=== PATIENT | female | born 1990 | race Caucasian/White ===

== ENCOUNTER 2020-03-11 11:27 | Outpatient (CLI) | payer OTHER, SELFPAY ==
--- NOTE | 2020-03-11 12:00 | MM_ITS ---
WS: [id number] DIAGNOSTIC BILATERAL DIGITAL MAMMOGRAM WITH CAD LEFT breast ultrasound, limited HISTORY: Palpable LEFT breast mass at 12:00. COMPARISON: None available. TECHNIQUE: Bilateral craniocaudad, mediolateral oblique, and mediolateral views are submitted. Spot c ompression LEFT CC. Computer aided detection utilized. Breast composition: The breasts are extremely dense, which lowers the sensitivity of mammography. Tri angular marker is placed at 12:00 anteriorly. There is no underlying mass or distortion identified. N o nipple retraction. There are very few benign calcifications scattered throughout the LEFT breast. LEFT breast ultrasound. Ultrasound is directed to the palpable abnormality near 1:00. There is very dense fibroglandular tiss ue. There is no mass or shadowing. No skin thickening. MM/[place] [id number] IMPRESSION: BI-RADS: 2-Benign FOLLOW UP: Age 38 LACK OF RADIOGRAPHIC EVIDENCE OF MALIGNANCY SHOULD NOT DELAY BIOPSY IF A CLINIC ALLY SUSPICIOUS MASS IS PRESENT.
--- NOTE | 2020-03-11 13:00 | US_ITS ---
WS: [id number] DIAGNOSTIC BILATERAL DIGITAL MAMMOGRAM WITH CAD LEFT breast ultrasound, limited HISTORY: Palpable LEFT breast mass at 12:00. COMPARISON: None available. TECHNIQUE: Bilateral craniocaudad, mediolateral oblique, and mediolateral views are submitted. Spot c ompression LEFT CC. Computer aided detection utilized. Breast composition: The breasts are extremely dense, which lowers the sensitivity of mammography. Tri angular marker is placed at 12:00 anteriorly. There is no underlying mass or distortion identified. N o nipple retraction. There are very few benign calcifications scattered throughout the LEFT breast. LEFT breast ultrasound. Ultrasound is directed to the palpable abnormality near 1:00. There is very dense fibroglandular tiss ue. There is no mass or shadowing. No skin thickening. US/US breast LT limited* [id number] IMPRESSION: BI-RADS: 2-Benign FOLLOW UP: Age 38 LACK OF RADIOGRAPHIC EVIDENCE OF MALIGNANCY SHOULD NOT DELAY BIOPSY IF A CLINIC ALLY SUSPICIOUS MASS IS PRESENT.
== END 2020-03-11 11:28 | disposition home or self-care (01) ==
LOC: RADSHAW 11:30
PROVIDERS: Visit Provider Internal Medicine
DX: N63.25 Unspecified lump in the left breast, overlapping quadrants (principal)
CPT/HCPCS: 76642; 77066

== ENCOUNTER → 2021-02-17 11:30 | Outpatient (BNVA) | payer OTHER, SELFPAY | PROVIDERS: Visit Provider Dermatology | DX: Z01.89 Encounter for other specified special examinations (principal) ==

== ENCOUNTER → 2021-03-23 15:20 | Outpatient (BNVA) | payer OTHER, SELFPAY | PROVIDERS: Visit Provider Family Medicine | DX: L29.9 Pruritus, unspecified (principal) | CPT/HCPCS: 80053; 84436; 84481; 85025 ==

== ENCOUNTER → 2021-04-22 14:10 | Outpatient (BNVA) | payer OTHER, SELFPAY | PROVIDERS: Visit Provider Family Medicine | DX: L29.9 Pruritus, unspecified (principal) | CPT/HCPCS: 71046 ==

== ENCOUNTER → 2022-02-09 17:02 | Outpatient (BNVA) | payer SELFPAY | PROVIDERS: Visit Provider Dermatology | DX: Z01.89 Encounter for other specified special examinations (principal) ==

== ENCOUNTER 2022-02-15 08:01 | Day surgery (SDC) | payer OTHER, SELFPAY ==
[2022-02-11 12:59] VITALS: BMI 24.7
--- NOTE | 2022-02-15 08:22 | W.PM.OPSFHP ---
Same Day Surgery H&P Indication for Procedure/HPI DATE OF PROCEDURE: February 15, 2022 CHIEF COMPLAINT/INDICATIONFOR SURGICAL PROCEDURE: Family history of colorectal cancer PREOP DIAGNOSIS: Painful diarrhea PLANNED PROCEDURE: Operation Date: 02/15/22 09:00 Proposed Procedures p Colonoscopy(Not Applicable) - Mitchell Morales MD Medications/Allergies* Home Medications Medication Instructions Recorded Confirmed Type aspirin 81 mg tablet 81 mg PO DAILY 02/11/22 02/11/22 History cholecalciferol (vitamin D3) 125 125 mcg PO DAILY 02/11/22 02/11/22 History mcg (5,000 unit) tablet (Vitamin D3) coenzyme Q10 100 mg capsule 100 mg PO DAILY 02/11/22 02/11/22 History docusate sodium 100 mg capsule 100 mg PO BID 02/11/22 02/11/22 History famotidine 20 mg tablet 20 mg PO BID 02/11/22 02/11/22 History polyethylene glycol 3350 17 gram 17 g PO DAILY 02/11/22 02/11/22 History oral powder packet (Miralax) vit no.133-ferrous 1 tab PO DAILY 02/11/22 02/11/22 History fumarate 28 mg-folic acid 800 mcg tablet () Allergies/Adverse Reactions Allergy/AdvReac Type Severity Reaction Status Date / Time No Known Allergies Allergy Verified 08/01/19 12:05 Pertinent Exam Findings alert, oriented x 3, clear to auscultation bilaterally, regular rate & rhythm, operative site marked and procedure specific exam findings Recommendations Surgery/Procedure today Coding Level of Care Code 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
--- NOTE | 2022-02-15 08:35 | ANES.PREANE2 ---
Pre-Anesthetic Assessment Height/Weight: Height 1.78 m Weight 78.018 kg Preop Diagnosis: Painful diarrhea Operation Date: 02/15/22 09:00 Proposed Procedures p Colonoscopy(Not Applicable) - Mitchell Morales MD Familial anesthetic complications: none Was Beta Yung taken within 24 hours: N/A Was Clonidine taken within 24 hours: N/A Last intake: > 8 hrs Social No alcohol and No tobacco Exam alert, oriented x 3, clear to auscultation bilaterally and regular rate & rhythm Airway Mallampati: Class I Dentition: full GI Gastroesophageal Reflux Disease Anesthetic Plan ASA status: 2 Anesthesia: MAC Risk of > 500 ml blood loss (7ml/kg in children): No Medications/Allergies Home Medications Medication Instructions Recorded Confirmed Last Taken Type aspirin 81 mg tablet 81 mg PO DAILY 02/11/22 02/15/22 02/10/22 History cholecalciferol (vitamin D3) 125 125 mcg PO DAILY 02/11/22 02/11/22 02/10/22 History mcg (5,000 unit) tablet (Vitamin D3) coenzyme Q10 100 mg capsule 100 mg PO DAILY 02/11/22 02/11/22 02/10/22 History docusate sodium 100 mg capsule 100 mg PO BID 02/11/22 02/11/22 02/10/22 History famotidine 20 mg tablet 20 mg PO BID 02/11/22 02/15/22 02/14/22 History vit no.133-ferrous 1 tab PO DAILY 02/11/22 02/11/22 02/10/22 History fumarate 28 mg-folic acid 800 mcg tablet () Allergies Allergy/AdvReac Type Severity Reaction Status Date / Time No Known Allergies Allergy Verified 08/01/19 12:05 [facility] Anesthesia Female Reproductive History Date of last menstrual period: 02/03/22 Data Anesthesia Cardiac Studies: No Data to Display
[2022-02-15 08:41] VITALS: BP 151/96; PULSE 96; RESP 18; TEMP 36.9; O2SAT 96
[2022-02-15] MEDS: sodium chloride 0.9% 1,000 ML 30 ML IV (08:45)
[2022-02-15 10:07] VITALS: BP 104/65; PULSE 70; RESP 16; TEMP 36.1; O2SAT 99
[2022-02-15 10:25] VITALS: BP 115/80; PULSE 68; RESP 18; O2SAT 100
--- NOTE | 2022-02-15 14:08 | ANE.PACU2 ---
Inpatient post-anesthesia follow up: Airway intact: Yes Vital signs: Temperature 97.0 F Pulse Rate 68 Respiratory Rate 18 Blood Pressure 115/80 Pulse Oximetry 100 Oxygen Delivery Me thod Room Air Oxygen Flow Rate Fraction of Inspir ed Oxygen Hydration adequate: Yes Nausea and vomiting: No Pain level: 1 Mental status: Baseline
[2022-02-16 09:03] LABS: OR HCG Qualitative Urine Negative (Negative)
== END 2022-02-15 10:49 | disposition home or self-care (01) ==
PROVIDERS: Visit Provider Internal Medicine
PROC: 0DJD8ZZ Inspection of Lower Intestinal Tract, Via Natural or Artificial Opening Endoscopic (ICD-10-PCS; CPT 45378; principal; 2022-02-15 09:00)
DX: R19.7 Diarrhea, unspecified (principal); Z80.0 Family history of malignant neoplasm of digestive organs; Z79.82 Long term (current) use of aspirin; K21.9 Gastro-esophageal reflux disease without esophagitis
CPT/HCPCS: 45378; 84703; J2704; J7030

== ENCOUNTER 2022-11-25 09:37 | Outpatient (CLI) | payer OTHER, SELFPAY ==
--- NOTE | 2022-11-25 10:30 | FL_ITS ---
WS: [id number] HYSTEROSALPINGOGRAM The cervical opening was cannulated by the obstetrics tech. Then under fluoroscopic guidance, water-solu ble contrast was injected in a retrograde fashion. CLINICAL INFORMATION: N97.9 - Female infertility, unspecified COMPARISON: None. FINDINGS: The uterus fills normally, with no evidence of contour abnormality, filling defect, or septum. The bi lateral fallopian tubes are normal and patent with normal rapid spillage of contrast into the periton eum. No other suspicious findings. FLUOROSCOPY TIME: 0min 43.0sec # of spot films: 5. FL/FL hysterosalpingography [id number] IMPRESSION: Normal hysterosalpingogram with rapid spillage bilaterally.
== END 2022-11-25 09:38 | disposition home or self-care (01) ==
PROVIDERS: Visit Provider Obstetrics & Gynecology
DX: N97.9 Female infertility, unspecified (principal)
CPT/HCPCS: 74740

== ENCOUNTER → 2023-12-19 09:53 | Outpatient (BNVA) | payer OTHER, SELFPAY | PROVIDERS: Referring Provider Family Medicine; Visit Provider Nurse Practitioner | DX: Z32.01 Encounter for pregnancy test, result positive (principal) | CPT/HCPCS: 84702 ==

== ENCOUNTER → 2023-12-26 10:50 | Outpatient (BNVA) | payer OTHER, SELFPAY | PROVIDERS: Referring Provider Nurse Practitioner; Visit Provider Nurse Practitioner | DX: N97.9 Female infertility, unspecified (principal) | CPT/HCPCS: 84703 ==

== ENCOUNTER → 2024-02-08 08:42 | Outpatient (BNVA) | payer OTHER, SELFPAY | PROVIDERS: Referring Provider Family Medicine; Visit Provider Family Medicine | DX: Z32.02 Encounter for pregnancy test, result negative (principal) | CPT/HCPCS: 84702 ==

== ENCOUNTER → 2024-02-10 10:20 | Outpatient (BNVA) | payer OTHER, SELFPAY | PROVIDERS: Referring Provider Family Medicine; Visit Provider Family Medicine | DX: Z32.00 Encounter for pregnancy test, result unknown (principal) | CPT/HCPCS: 84702 ==

== ENCOUNTER → 2024-02-13 10:45 | Outpatient (BNVA) | payer OTHER, SELFPAY | PROVIDERS: Referring Provider Nurse Practitioner; Visit Provider Nurse Practitioner | DX: Z34.90 Encounter for supervision of normal pregnancy, unspecified, unspecified trimester (principal) | CPT/HCPCS: 84702 ==

== ENCOUNTER → 2024-02-16 08:20 | Outpatient (BNVA) | payer OTHER, SELFPAY | PROVIDERS: Referring Provider Nurse Practitioner; Visit Provider Nurse Practitioner | DX: N97.9 Female infertility, unspecified (principal) | CPT/HCPCS: 84702 ==

== ENCOUNTER → 2024-03-26 10:52 | Outpatient (BNVA) | payer OTHER, SELFPAY | PROVIDERS: PCP Nurse Practitioner; Referring Provider Nurse Practitioner; Visit Provider Nurse Practitioner | DX: N97.9 Female infertility, unspecified (principal) | CPT/HCPCS: 84702 ==

== ENCOUNTER → 2024-04-16 08:13 | Outpatient (BNVA) | payer OTHER, SELFPAY | PROVIDERS: PCP Nurse Practitioner; Referring Provider Nurse Practitioner; Visit Provider Nurse Practitioner | DX: N97.9 Female infertility, unspecified (principal) | CPT/HCPCS: 84702 ==

== ENCOUNTER → 2024-04-18 08:30 | Outpatient (BNVA) | payer OTHER, SELFPAY | PROVIDERS: PCP Nurse Practitioner; Referring Provider Nurse Practitioner; Visit Provider Nurse Practitioner | DX: N97.9 Female infertility, unspecified (principal); N63.20 Unspecified lump in the left breast, unspecified quadrant | CPT/HCPCS: 84144; 84702 ==

== ENCOUNTER → 2024-06-20 09:30 | Outpatient (BNVA) | payer OTHER, SELFPAY | PROVIDERS: PCP Nurse Practitioner; Referring Provider Nurse Practitioner; Visit Provider Nurse Practitioner | DX: N97.9 Female infertility, unspecified (principal) | CPT/HCPCS: 84702 ==

== ENCOUNTER → 2024-06-22 09:46 | Outpatient (BNVA) | payer OTHER, SELFPAY | PROVIDERS: PCP Nurse Practitioner; Visit Provider Nurse Practitioner | DX: N97.9 Female infertility, unspecified (principal) | CPT/HCPCS: 84702 ==

== ENCOUNTER → 2024-08-08 14:35 | Outpatient (BNVA) | payer OTHER, SELFPAY | PROVIDERS: PCP Nurse Practitioner; Visit Provider Nurse Practitioner Women's Health | DX: N91.2 Amenorrhea, unspecified (principal); Z34.90 Encounter for supervision of normal pregnancy, unspecified, unspecified trimester; Z3A.10 10 weeks gestation of pregnancy | CPT/HCPCS: 76801; 80307; 81025; 85025; 86592; 86762; 86803; 86850; 86900; 87086; 87340; 87806 ==

== ENCOUNTER → 2024-09-05 13:23 | Outpatient (BNVA) | payer OTHER, SELFPAY | PROVIDERS: PCP Nurse Practitioner; Visit Provider Nurse Practitioner Women's Health | DX: Z34.92 Encounter for supervision of normal pregnancy, unspecified, second trimester (principal); Z3A.15 15 weeks gestation of pregnancy | CPT/HCPCS: 76815; 84315; 87491; 87591; 87661 ==

== ENCOUNTER → 2024-09-18 12:02 | Outpatient (BNVA) | payer OTHER, SELFPAY | PROVIDERS: PCP Nurse Practitioner; Referring Provider Nurse Practitioner Women's Health; Visit Provider Nurse Practitioner Women's Health | DX: O09.899 Supervision of other high risk pregnancies, unspecified trimester (principal); Z3A.00 Weeks of gestation of pregnancy not specified | CPT/HCPCS: 80053; 82105; 82607; 82728; 82746; 83540; 83550; 87086 ==

== ENCOUNTER 2024-09-26 14:14 | Outpatient (CLI) | payer OTHER, SELFPAY ==
--- NOTE | 2024-09-26 14:30 | US_ITS ---
WS: [id number] Left breast ultrasound, 09/26/2024 Clinical Data: R22.32 - Localized swelling, mass and lump, left upper limb Comparison: Left breast ultrasound, 03/11/2020 Findings: The swelling in the axilla was imaged. Enlarged lymph nodes were seen. One lymph node measured 0.9 x 1.1 x 1.2 cm and the other was 1.2 x 2.1 x 2.2 cm. No other lesions were seen. US/US breast LT limited* [id number] Impression: 1. Lymph nodes in left axilla. 2. Recommend clinical follow-up. BIRADS: 2 - Benign FOLLOW UP: See Report
== END 2024-09-26 14:15 | disposition home or self-care (01) ==
PROVIDERS: PCP Nurse Practitioner; Visit Provider Nurse Practitioner Women's Health
DX: R59.0 Localized enlarged lymph nodes (principal)
CPT/HCPCS: 76642

== ENCOUNTER 2024-09-28 13:13 | Outpatient (CLI) | payer OTHER, SELFPAY ==
--- NOTE | 2024-09-28 13:30 | US_ITS ---
WS: [id number] ULTRASOUND-GUIDED LEFT AXILLARY LYMPH NODE BIOPSY CLINICAL INFORMATION: R22.32 - Localized swelling, mass and lump, left upper limb FINDINGS: The procedure including risks, benefits, and complications were discussed with the patient who agreed to proceed. Using sterile technique patient was prepped and draped in the usual sterile fashion. After 1% lidocaine utilizing real-time ultrasound guidance 4 14-gauge cores were obtained of the enlarged LEFT axillary lymph node. No immediate complications. US/[place] [id number] IMPRESSION: 1. Uncomplicated ultrasound-guided LEFT breast biopsy. 2. The pathology demonstrates benign appearing lymph node tissue. No evidence of malignancy. DENSITY: The breasts are heterogeneously dense, which may obscure small masses. BI-RADS: 2 - Benign FOLLOW UP: Age 38 Recommend annual screening mammography age 38
== END 2024-09-28 13:14 | disposition home or self-care (01) ==
PROVIDERS: PCP Nurse Practitioner; Visit Provider Nurse Practitioner Women's Health
DX: R22.32 Localized swelling, mass and lump, left upper limb (principal)
CPT/HCPCS: 19083; 88305

== ENCOUNTER → 2024-10-10 14:03 | Outpatient (BNVA) | payer OTHER, SELFPAY | PROVIDERS: PCP Nurse Practitioner; Visit Provider Nurse Practitioner Women's Health | DX: Z36.9 Encounter for antenatal screening, unspecified (principal) | CPT/HCPCS: 76805; 84315 ==

== ENCOUNTER → 2024-11-09 11:03 | Outpatient (BNVA) | payer OTHER, SELFPAY | PROVIDERS: PCP Nurse Practitioner; Visit Provider Nurse Practitioner | DX: R31.9 Hematuria, unspecified (principal) | CPT/HCPCS: 81000; 87077; 87086; 87184 ==

== ENCOUNTER → 2024-11-14 13:26 | Outpatient (BNVA) | payer OTHER, SELFPAY | PROVIDERS: PCP Nurse Practitioner; Visit Provider Nurse Practitioner Women's Health | DX: O09.899 Supervision of other high risk pregnancies, unspecified trimester (principal); O23.41 Unspecified infection of urinary tract in pregnancy, first trimester; B95.1 Streptococcus, group B, as the cause of diseases classified elsewhere | CPT/HCPCS: 84315 ==

== ENCOUNTER 2024-12-08 22:17 | Outpatient (CLI) | payer OTHER, SELFPAY ==
[2024-12-08 22:24] VITALS: BMI 29.7
[2024-12-08 22:49] VITALS: BP 117/67; PULSE 75
[2024-12-08 22:59] VITALS: BP 103/60; PULSE 75
[2024-12-08 23:09] VITALS: BP 99/58; PULSE 73
[2024-12-08 23:19] VITALS: BP 97/58; PULSE 73
[2024-12-08 23:29] VITALS: BP 97/58; PULSE 73; RESP 16; TEMP 36.6; O2SAT 100
== END 2024-12-08 23:33 | disposition home or self-care (01) ==
LOC: OPOB 22:18 → OBGYN 22:20
PROVIDERS: PCP Family Medicine; Visit Provider Obstetrics & Gynecology
DX: O36.8190 Decreased fetal movements, unspecified trimester, not applicable or unspecified (principal); Z3A.00 Weeks of gestation of pregnancy not specified
CPT/HCPCS: 59025; 99211

== ENCOUNTER → 2024-12-12 14:38 | Outpatient (BNVA) | payer OTHER, SELFPAY | PROVIDERS: PCP Family Medicine; Visit Provider Nurse Practitioner Women's Health | DX: O09.899 Supervision of other high risk pregnancies, unspecified trimester (principal) | CPT/HCPCS: 82950; 84315; 85025 ==

== ENCOUNTER → 2024-12-27 15:32 | Outpatient (BNVA) | payer OTHER, SELFPAY | PROVIDERS: PCP Family Medicine; Visit Provider Obstetrics & Gynecology | DX: O09.899 Supervision of other high risk pregnancies, unspecified trimester (principal); Z87.59 Personal history of other complications of pregnancy, childbirth and the puerperium | CPT/HCPCS: 80053; 82570; 83615; 84156; 84315; 85025 ==

== ENCOUNTER → 2025-01-10 12:42 | Outpatient (BNVA) | payer OTHER, SELFPAY | PROVIDERS: PCP Family Medicine; Visit Provider Obstetrics & Gynecology | DX: Z36.4 Encounter for antenatal screening for fetal growth retardation (principal); Z3A.33 33 weeks gestation of pregnancy | CPT/HCPCS: 76816; 84315 ==

== ENCOUNTER → 2025-01-24 15:00 | Outpatient (BNVA) | payer OTHER, SELFPAY | PROVIDERS: PCP Family Medicine; Visit Provider Obstetrics & Gynecology | DX: O09.523 Supervision of elderly multigravida, third trimester (principal); O09.813 Supervision of pregnancy resulting from assisted reproductive technology, third trimester; O09.293 Supervision of pregnancy with other poor reproductive or obstetric history, third trimester | CPT/HCPCS: 80053; 82570; 84156; 84315; 84550; 85025 ==

== ENCOUNTER → 2025-01-31 13:57 | Outpatient (BNVA) | payer OTHER, SELFPAY | PROVIDERS: PCP Family Medicine; Visit Provider Obstetrics & Gynecology | DX: O09.523 Supervision of elderly multigravida, third trimester (principal); O09.813 Supervision of pregnancy resulting from assisted reproductive technology, third trimester; Z87.59 Personal history of other complications of pregnancy, childbirth and the puerperium; Z3A.35 35 weeks gestation of pregnancy | CPT/HCPCS: 84315 ==

== ENCOUNTER → 2025-02-07 14:38 | Outpatient (BNVA) | payer OTHER, SELFPAY | PROVIDERS: PCP Family Medicine; Visit Provider Obstetrics & Gynecology | DX: O09.523 Supervision of elderly multigravida, third trimester (principal); O09.293 Supervision of pregnancy with other poor reproductive or obstetric history, third trimester | CPT/HCPCS: 84315 ==

== ENCOUNTER 2025-02-15 13:59 | Outpatient (CLI) | payer OTHER, SELFPAY ==
--- NOTE | 2025-02-15 14:15 | US_ITS ---
WS: [id number] BIOPHYSICAL PROFILE AMNIOTIC FLUID HISTORY: Z87.59 - Personal history of other complications of pregn... COMPARISON: 01/10/2025 position: Vertex. Cardiac activity: 163 bpm. Cervix: closed. Placenta: Fundal Placenta grade: 3 Parameters are as follows: Breathin Movement: 2 Tone: 2 Fluid volume: 2 Amniotic Fluid Index: 9.4 cm. US/US OB BPP wo NST [id number] IMPRESSION: 1. Biophysical profile score: 8/8. 2. Amniotic fluid index: 9.4 cm. 3. Grade 3 placenta. Placenta has age since the prior ultrasound of 01/10/2025.
== END 2025-02-15 14:00 | disposition home or self-care (01) ==
LOC: RAD 14:00
PROVIDERS: PCP Family Medicine; Visit Provider Obstetrics & Gynecology
DX: Z87.59 Personal history of other complications of pregnancy, childbirth and the puerperium (principal); O09.893 Supervision of other high risk pregnancies, third trimester; O43.893 Other placental disorders, third trimester
CPT/HCPCS: 76819; 84315

== ENCOUNTER → 2025-02-21 15:13 | Outpatient (BNVA) | payer OTHER, SELFPAY | PROVIDERS: PCP Family Medicine; Visit Provider Obstetrics & Gynecology | DX: Z3A.38 38 weeks gestation of pregnancy (principal) | CPT/HCPCS: 84315 ==

== ENCOUNTER 2025-02-23 07:17 | Inpatient (IN) | payer OTHER, SELFPAY ==
[2025-02-22] VITALS (26 sets, daily range): BP systolic 104–139; BP diastolic 58–89; PULSE 69–86; RESP 16; TEMP 36.8–36.9; BMI 29.9
[2025-02-22 13:35] LABS: Hematocrit 34.4 % (36-47); Hemoglobin 11.60 g/dL (11.27-16.99); Mean Corpuscular HGB Conc 33.7 g/dL (30-55); Mean Corpuscular Hemoglobin 26.9 pg (27-33); Mean Corpuscular Volume 79.6 fl (85-98); Nucleated Red Blood Cells % 0 %; Platelet Count 204 10^3/cmm (157-399); Red Blood Count 4.32 10^6/uL (3.85-5.65); White Blood Count 8.86 10^3/uL (3.29-11.43)
[2025-02-22] MEDS: penicillin g potassium 5,000,000 UNIT in sodium chloride 0.9% (plus) 100 ML 100 UNIT IV (13:50)
--- NOTE | 2025-02-22 14:23 | P.HP_ITS ---
Providers/Chief Complaint 2 Admitting Physician: Michael Patel MD Primary Care Provider: Lyndsay Coronado MD Chief Complaint: iol History of Present Illness Samantha Gomez is a 34 year old established patient @ 39.0 weeks by ART of donated 6-day old embryo on 06/14/2024 placing DARA at 03/01/2025, confirmed with 10-week sonogram. Her is complicated by advanced maternal age, history of gestational hypertension, embryo transfer, GBS bacteruria. The patient presented to labor and delivery for a scheduled elective induction of labor due to concern for her prior history of gestational hypertension. Upon presentation her heart tones are in the mid 150s with moderate variability good accelerations with a category 1 tracing. She is not having any contractions. The patient denies any chest pains, shortness of breath, nausea, vomiting, diarrhea, constipation, dysuria, leakage of fluid, vaginal bleeding, fever. She did have a viral URI a couple of weeks ago and still has a mild residual cough. Medications/Allergies Home Medications ?Medication ?Instructions ?Recorded ?Confirmed ?Last Taken ?Type famotidine 20 mg tablet 20 mg PO BID 02/11/2202/21/25 22:00 History vits no.133-ferrous 1 tab PO DAILY 02/11/22 0 02/21/25 02/19/25 20:00 History fumarate 28 mg-folic acid 800 mcg tablet () aspirin 81 mg chewable tablet 81 mg PO DAILY 10/10/24 02/21/25 Unknown History breast pump #1 ea 12/12/24 02/21/25 Unkn own Rx Allergies Allergy/AdvReac Type Severity Reaction Status Date / Time shellfish derived Allergy ALGY-Rash Verified 02/21/25 08:08 PFSH Acute 2 PFSH: Medical History No pertinent past medical history neghx: htn,dm,thyroid,dvt/pe PCP: Mariam Arana Surgical History History of cholecystectomy Family History Grandmother Colon cancer paternal - dx'd at age 60 Father Heart disease Grandfather Heart disease maternal Denies family history of Ovarian cancer Prostate cancer Diabetes Hyperlipidemia Breast cancer Hypertension Uterine cancer Thyroid disease Stroke Social History (Updated 02/22/25 @ 14:28 by Michael Patel MD) Smoking and tobacco/nicotine status: never used tobacco/nicotine Substance/Drug Use: never Female Reproductive History: : 4 Vitals/I&O/Wt Last Vital Signs Pulse 82 02/22/25 14:17 BP 119/73 02/22/25 14:17 O2 Del Method Room Air 02/22/25 13:00 Weight last 48 hrs Weight 209 lb Weight 209 lb Physical Exam 2 Narrative: General: Alert and oriented x3 Eyes: Pupils equal round and reactive to light and accommodation Mouth: Mucous membranes moist, pharynx non-erythematous Cardiac: Regular rate and rhythm without murmurs Lungs: Clear to auscultation bilaterally without wheezes, crackles or rhonchi Abdomen: Soft, non-tender, fundus consistent with gestational age Extremities: Trace edema in the bilateral lower extremities Data 02/22/25 13:05 A&P Assessment and plan 1. Intrauterine : The patient is doing well overall at this time. We discussed different options for induction of labor and the patient was found to be closed, thick and high upon presentation. For this reason, Cytotec was placed. We will recheck in 4 hours to see how she is doing and plan for the next step depending on her course. The patient may receive a laboring epidural if she would like when she gets to 3 cm dilation. Potentially sooner if needed. Will start penicillin for GBS prophylaxis. Overall the patient is doing well. We will proceed with routine intrapartum management. 2. resulting from in vitro fertilization in third trimester: 3. Group B Streptococcus urinary tract infection affecting in third trimester: 4. History of gestational hypertension: 5. Multigravida of advanced maternal age in third trimester: PDMP PDMP Reviewed: Not Reviewed Attestations 2 Medical Necessity Statement*: The patient will be here for greater than 2 midnights due to routine intrapartum and management of labor and delivery. Coding Level of Care Code Acute Code for Chg Fwd Diagnoses Intrauterine Z34.90 resulting from in vitro fertilization in third trimester O09.813 Group B Streptococcus urinary tract infection affecting in third trimester O23.43; B95.1 Trimester: third trimester History of gestational hypertension Z87.59 Multigravida of advanced maternal age in third trimester O09.523 Trimester: third trimester
[2025-02-22] MEDS: PENICILLIN G POTASSIUM 2,500,000 UNIT/50 ML BAG 50 UNIT IV ×2 (18:11→21:52)
--- NOTE | 2025-02-22 23:05 | PM.ACPR ---
Procedure/Consent Procedure Narrative: Name of procedure: Mcclure bulb placement The patient had 1 dose of Cytotec and has been nikita, however not making significant change. She has been nikita every 2 to 3 minutes. heart tones are in the mid 140s with moderate variability and good accelerations with a category 1 tracing. At this point she does not have a mario of 6 and she is nikita too frequently in order to place another Cytotec. Her last dose was 9 hours ago. Because she is not making change we decided to place a Mcclure bulb. The first attempt was not able to pass a Mcclure bulb into the cervix successfully, so we waited a couple of hours. On the second attempt, the Mcclure bulb was placed using a speculum for guidance. 70 mL of fluid was placed in each balloon on either side of the cervix. The patient tolerated the procedure well. There was some bloody show with the procedure. No active bleeding otherwise. We will proceed with current plan of care and plan to add Pitocin if she does not make change sufficiently with the Mcclure bulb and her current contractions. Currently the patient is in agreement with the current plan of care
[2025-02-23] VITALS (79 sets, daily range): BP systolic 79–145; BP diastolic 45–106; PULSE 55–107; RESP 16–18; TEMP 36.7–36.8; O2SAT 89–100
[2025-02-23] MEDS: PENICILLIN G POTASSIUM 2,500,000 UNIT/50 ML BAG 50 UNIT IV ×2 (02:11→05:45)
[2025-02-23] MEDS: ROPivacaine premix 200 MG/100 ML PREMIX 13 MG EPIDURAL (03:45)
--- NOTE | 2025-02-23 03:49 | ANES.PREANE2 ---
Pre-Anesthetic Assessment Height/Weight: Height 1.78 m Weight 94.801 kg Temp Pulse Resp BP Pulse Ox O2 Del Method 98.5 F 77 16 127/85 99 Room Air 02/22/25 20:44 02/23/25 03:44 02/22/25 18:00 02/23/25 03:36 02/23/25 03:44 02/22/25 13:00 Preop Diagnosis: intrauterine labor epidural Familial anesthetic complications: none Was Beta Yung taken within 24 hours: N/A Was Clonidine taken within 24 hours: N/A Social No alcohol and No tobacco Exam alert, oriented x 3 and clear to auscultation bilaterally Airway Mallampati: Class II Dentition: full History/ROS No significant history except as noted Pulmonary None reported CV/HEM None reported None reported Hepatic None reported GI None reported Metabolic None reported Musc/skel None reported Neuropsych None reported Anesthetic Plan ASA status: 2 Anesthesia: Regional (specify below) Risk of > 500 ml blood loss (7ml/kg in children): Yes, adequate IV access and fluids planned Medications/Allergies Home Medications ?Medication ?Instructions ?Recorded ?Confirmed ?Last Taken ?Type famotidine 20 mg tablet 20 mg PO BID 02/11/22 02/21/25 02/21/25 22:00 History vits no.133-ferrous 1 tab PO DAILY 02/11/22 02/21/25 02/19/25 20:00 History fumarate 28 mg-folic acid 800 mcg tablet () aspirin 81 mg chewable tablet 81 mg PO DAILY 10/10/24 02/21/25 Unknown History breast pump #1 ea 12/12/24 02/21/25 Unknown Rx Allergies Allergy/AdvReac Type Severity Reaction Status Date / Time shellfish derived Allergy ALGY-Rash Verified 02/21/25 08:08 Current Medications Generic Name Dose Route Start Last Admin Trade Name Freq PRN Reason Stop Dose Admin Penicillin G Potassium 2,500,000 unit in 50 mls @ 50 mls/hr 02/22/25 17:30 02/23/25 02:11 IV 50 mls/hr Q4H FREDY Administration Protocol Dextrose/Lactated Ringer's 1,000 mls @ 125 mls/hr 02/22/25 13:30 02/22/25 13:50 Dextrose 5%-Lactated Ringers IV 125 mls/hr .Q8H FREDY Administration Ropivacaine 200 mg in 100 mls @ 10 mls/hr 02/23/25 02:15 02/23/25 03:45 Naropin Premix EPIDURAL 13 mls/hr .Q10H FREYD Administration Misoprostol 25 mcg 02/22/25 13:45 02/22/25 13:50 Misoprostol 100 Mcg Tablet VAGINAL 02/24/25 13:46 25 mcg ONCE FREDY Administration PFSH Anesthesia Medical History (Updated 02/22/25 @ 14:28 by Michael Patel MD) No pertinent past medical history neghx: htn,dm,thyroid,dvt/pe PCP: Mariam Arana Surgical History History of cholecystectomy Family History Grandmother Colon cancer paternal - dx'd at age 60 Father Heart disease Grandfather Heart disease maternal Denies family history of Ovarian cancer Prostate cancer Diabetes Hyperlipidemia Breast cancer Hypertension Uterine cancer Thyroid disease Stroke Social History (Updated 02/22/25 @ 14:28 by Michael Patel MD) Smoking and tobacco/nicotine status: never used tobacco/nicotine Substance/Drug Use: never Female Reproductive History : 4 Data Anesthesia 02/22/25 13:05 Short CBC 02/22/25 Range/Units 13:05 WBC 8.86 (3.29-11.43) 10^3/uL Hgb 11.60 (11.27-16.99) g/dL Hct 34.4 L (36-47) % MCV 79.6 L (85-98) fl Plt Count 204 (157-399) 10^3/cmm Neut % (Auto) 76.8 % Neut # (Auto) 6.81 (1.8-7.7) 10^3/uL Blood Bank 02/22/25 13:05 Blood Type A Positive Rho(D) Type Rh positive Antibody Screen Negative Anesthesia Procedures Epidural Time Out Performed: Yes Consents Signed: Procedure Consent Consent: requested by attending/covering physician, from patient, risks and benefits reviewed and patient agrees to proceed Lumbar Level: L4-L5 Epidural position: sitting Epidural procedure: sterile prep of area, 1% lidocaine to numb the area, 18 g needle, negative for paresthesia passed, neg for paresthesia, test dose given, 1.5% xylocaine 1:200k epi, 0.2% Ropivacaine bolus ml (5), placed PCEA, no systemic response, sterile dressing applied, L.U.D. no apparent complications and 0.2% Ropiavacaine @ mls/hr (13) Additional Comments: BENJAMIN 6cm, catheter easily threaded to 5cm in the space. VS monitored throughout and remained stable. Pt educated on OPERATOR CAVITY PUMP and reports adequate pain relief with epidural
[2025-02-23] MEDS: oxytocin 30 UNIT/500 ML BAG IV (05:15)
[2025-02-23] MEDS: ondansetron 2 mg/ML SDV 2 mL 4 MG IVP (06:37)
[2025-02-23] MEDS: PENICILLIN G POTASSIUM 2,500,000 UNIT/50 ML BAG 100 UNIT IV (09:49)
[2025-02-23] MEDS: ROPivacaine premix 200 MG/100 ML PREMIX 12 MG EPIDURAL (11:02)
--- NOTE | 2025-02-23 12:20 | P.PCNOB_ITS ---
Delivery Note: Date of delivery: February 23, 2025 Pre-Delivery Course: Samantha Gomez is a 34 year old G4 now P3013 established patient status post spontaneous vaginal delivery @ 39.1 weeks by ART of donated 6-day old embryo on 06/14/2024 placing DARA at 03/01/2025, confirmed with 10-week sonogram. Her was complicated by advanced maternal age, history of gestational hypertension, embryo transfer, GBS bacteruria. The patient presented to labor and delivery for a scheduled elective induction of labor due to concern for her prior history of gestational hypertension. Upon presentation, her cervix was closed, thick and high. She was started on IV penicillin for GBS prophylaxis and given 1 dose of Cytotec and she began to contract every 3 to 4 minutes. The contractions continued and she changed to 1 cm dilation but continued to be thick and high. With concern that another dose of Cytotec could cause hyperstimulation and that her Carter was less than 6, it was felt best to proceed with a Mcclure bulb placement. Initially the first attempt was unsuccessful related to the patient's very posterior cervix, but on the second attempt it was successful using a speculum as a guide. The patient's cervix dilated to 5 cm when the Mcclure bulb came out on its own. IV Pitocin was started for augmentation of labor. The patient received a laboring epidural. The patient did have an episode of low blood pressure that was associated with dizziness. A fluid bolus was given and her epidural was turned down. The patient recovered well with this intervention alone. The IV Pitocin was restarted and gradually increased. By 9:10 AM on 02/23/2025, she had not made significant change so AROM was performed to help augment labor. Clear fluid was noted. Delivery: The patient was complete by 11:40 AM on 02/23/2025. The patient began pushing at 11:55 AM and pushed well. The delivered at 12:00 PM in the OA position. There was no nuchal cord. The right shoulder was anterior shoulder and it delivered with ease. The rest of the infant delivered without complication. The 's mouth and nose were bulb suction by myself. The fluid did become lightly meconium stained at the time of delivery. The infant was placed on the mother's chest where the nurses were awaiting to care for her. The was vigorous at . The cord was clamped by myself after approximately 1 minute and cut by the 's father. Cord blood was obtained. The cord was then drained of blood and traction was placed on umbilical cord. The placenta delivered without complication at 12:07 PM on 02/23/2025. The placenta was noted to be intact with a central umbilical cord insertion site. The cervix was inspected and no lacerations were noted. The vaginal wall was inspected and there were 2 small abrasions noted on the left lower vaginal wall. These were not bleeding and did not need suturing. The patient's bleeding has been slow so far and her EBL is 150 mL. Currently both the mother and are doing very well. History History History 2 4 Term 3 0 Miscarriages/Ectopic 1 Living Children 3 Past Pregnancies Del. Date GA/Weeks Outcome Route Wt Inf Gender Labor Lgth Comp. Anesth esia Location 02/23/25 39 live - full term Vaginal 6 lb 15 oz Female 16 hr regional [facility] - [facility] Delivery Date: 02/23/25 Last Updated by: Michael Patel MD No tears A&P Assessment and plan 1. Spontaneous vaginal delivery: PDMP PDMP Reviewed: Not Reviewed Coding Level of Care Code Acute Code for Chg Fwd Diagnoses Spontaneous vaginal delivery O80
--- NOTE | 2025-02-23 17:33 | PC.NURSE ---
PATIENT HAS NOT VOIDED SINCE DELIVERY SO I HAD BEEN TELLING HER THAT WE NEEDED TO TRY AND GO PEE, SHE HAS HAD LOTS OF COMPANY AND HER LEFT LEG WAS STILL SO WHAT NUMB SHE CAN LIFT IT. SO AT AROUND 1545 OR SO. WE TRIED TO STAND UP AND MARCH IN PLACE AND HER LEFT LEG DID NOT WANT TO SUPPORT HER SO WE GOT A WHEELCHAIR AND PUT HER IN IT AND WHEELED HER TO BATHROOM AND THEN ASSISTED HER TO TOILET AND SHE PEED LARGE AMOUNT AND WAS INSTRUCTED ON [employer] AND FRESH PAD AND PANTIES PUT ON AND THEN WE AGAIN ASSISTED HER INTO WHEELCHAIR AND THEN WE MOVED HER AND ALL HER BELONGING TO OB 7 AND ASSISTED HER TO BED. AGAIN STRESSED TO HER NOT TO GET UP WITHOUT US. SHE VOICES UNDERSTANDING.
--- NOTE | 2025-02-23 19:08 | PC.NURSE ---
1745 PT UP TO BATHROOM, WALKING BETTER BUT LEFT LEG IS STILL UNSTEADY WHEN SHE SITS DOWN. AGAIN TOLD HER NOT TO GET UP WITHOUT OUR HELP, VOICED UNDERSTANDING.
[2025-02-24 00:17] LABS: Hematocrit 29.0 % (36-47); Hemoglobin 9.60 g/dL (11.27-16.99); Mean Corpuscular HGB Conc 33.1 g/dL (30-55); Mean Corpuscular Hemoglobin 26.9 pg (27-33); Mean Corpuscular Volume 81.2 fl (85-98); Platelet Count 143 10^3/cmm (157-399); Red Blood Count 3.57 10^6/uL (3.85-5.65); White Blood Count 11.34 10^3/uL (3.29-11.43)
[2025-02-24 06:44] VITALS: BP 122/74; TEMP 36.3
--- NOTE | 2025-02-24 07:35 | PC.NURSE ---
mother requests rounding every 2 hours. discussed routine vitals and testing. encouraged to call nursing for any needs.
[2025-02-24] MEDS: PRENATAL VIT NO.130/IRON/FOLIC 1 EACH TABLET PO (09:21)
[2025-02-24 09:22] VITALS: BP 113/81; PULSE 86; RESP 15; TEMP 36.7; O2SAT 97
--- NOTE | 2025-02-24 13:02 | P.DS_ITS ---
Discharge Providers Date of Admission: 02/23/25 07:17 Date of Discharge: February 24, 2025 Attending Provider at Admission: Michael Patel MD Attending Provider at Discharge: Michael Patel MD Primary Care Provider: Lyndsay Coronado MD Diagnoses at Discharge Discharge Diagnosis 1. Spontaneous vaginal delivery: Other Information Additional DC diagnoses/information: 1. Intrauterine status post spontaneous vaginal delivery at 39.1 weeks gestation 2. GBS bacteriuria 3. History of gestational hypertension 4. Advanced maternal age 5. ART with embryo transfer 6. Delivery of healthy infant female weighing 6 pounds 15 ounces with Apgars of 9 and 9 Reason for Visit Reason for Visit: iol Brief History: Samantha Gomez is a 34 year old G4 now P3013 established patient status post spontaneous vaginal delivery @ 39.1 weeks by ART of donated 6-day old embryo on 06/14/2024 placing DARA at 03/01/2025, confirmed with 10-week sonogram. Her was complicated by advanced maternal age, history of gestational hypertension, embryo transfer, GBS bacteruria. The patient presented to labor and delivery for a scheduled elective induction of labor due to concern for her prior history of gestational hypertension. Upon presentation, her cervix was closed, thick and high. Hospital Course Hospital Course The patient was started on IV penicillin for GBS prophylaxis and was given 1 dose of Cytotec. She then received a Mcclure bulb for continued induction of labor. She was 5 cm after the Mcclure bulb came out and was started on IV Pitocin. She made gradual change and AROM was performed at 9:10 AM on 02/23/2025. She was complete by 9:40 AM on 02/23/2025 and delivered a healthy female at 12 PM on 02/23/2025. There were no complications related to the delivery. There were no tears. Estimated blood loss was 150 mL. , the patient has done well. She is ambulating, voiding, passing gas and tolerating food by mouth. Her bleeding has decreased well. Her pain has been well-controlled with Motrin alone. The patient is to call her OB office for a follow-up appointment. She is showing no signs of gestational or hypertension at this time. She did have a hemoglobin drop from 11.6 down to 9.6 after delivery. She is currently asymptomatic from this. She was advised to take iron once a day along with her vitamin. If she can tolerate the iron twice a day, then this would be ideal. Routine discharge instructions were discussed. All questions were answered. The patient and her are in agreement with discharge home at this time. Physical Exam Narrative: General: Alert and oriented x3 Cardiac: Regular rate and rhythm without murmurs Lungs: Clear to auscultation bilaterally without wheezes, crackles or rhonchi Abdomen: Soft, mild tenderness over uterus. The uterus is firm and 2 cm below the umbilicus. Extremities: Trace edema in the bilateral lower extremities Urinary Catheter Management: Mcclure: Cath Placed During This Visit: yes, but has since been removed by the nurse Reason for Continuing Indwelling Catheter: Other Urinary Catheter Date of Insertion: 02/23/25 Urinary Catheter Time of Insertion: 04:15 Date Urinary Catheter Removed: 02/23/25 Time Urinary Catheter Discontinued: 11:53 Discharge Data Studies Completed and Pending Laboratory Results WBC 11.34 10^3/uL (3.29-11.43) 02/23/25 00:00 RBC 3.57 10^6/uL (3.85-5.65) L 02/23/25 00:00 Hgb 9.60 g/dL (11.27-16.99) L 02/23/25 00:00 Hct 29.0 % (36-47) L 02/23/25 00:00 MCV 81.2 fl (85-98) L 02/23/25 00:00 MCH 26.9 pg (27-33) L 02/23/25 00:00 MCHC 33.1 g/dL (30-55) 02/23/25 00:00 RDW 13.2 % (12.1-15.1) 02/23/25 00:00 Plt Count 143 10^3/cmm (157-399) L 02/23/25 00:00 MPV 10.9 fL (7.4-10.4) H 02/23/25 00:00 Neut % (Auto) 76.8 % 02/22/25 13:05 Lymph % (Auto) 16.0 % 02/22/25 13:05 [place] % (Auto) 6.0 % 02/22/25 13:05 Eos % (Auto) 0.5 % 02/22/25 13:05 Baso % (Auto) 0.5 % 02/22/25 13:05 Neut # (Auto) 6.81 10^3/uL (1.8-7.7) 02/22/25 13:05 Lymph # (Auto) 1.4 10^3/uL (0.8-4.8) 02/22/25 13:05 [place] # (Auto) 0.5 10^3/uL (0.2-0.9) 02/22/25 13:05 Eos # (Auto) 0.0 10^3/uL (0.0-0.8) 02/22/25 13:05 Baso # (Auto) 0.0 10^3/uL (0.0-0.1) 02/22/25 13:05 Nucleated RBC % (auto) 0 % 02/22/25 13:05 Nucleated RBCs # 0.0 /100WBC 02/22/25 13:05 Blood Type A Positive 02/22/25 13:05 Rho(D) Type Rh positive 02/22/25 13:05 Antibody Screen Negative 02/22/25 13:05 Vitals Last Vital Signs Temp 98.1 F 02/24/25 09:22 Pulse 86 02/24/25 09:22 Resp 15 02/24/25 09:22 BP 113/81 02/24/25 09:22 Pulse Ox 97 02/24/25 09:22 O2 Del Method Room Air 02/24/25 09:22 Discharge Plan Discharge Patient Disposition: Home Condition: Stable Prescriptions: New ibuprofen 800 mg Tablet 800 mg PO TID Qty: 30 0RF ferrous sulfate 325 mg (65 mg iron) tablet 325 mg PO BID Qty: 30 0RF Continued famotidine 20 mg Tablet 20 mg PO BID 28-800 mg-mcg Tablet 1 tab PO DAILY Discontinued aspirin 81 mg tablet,chewable 81 mg PO DAILY No Action (DME) breast pump Device See Rx Instructions .ROUTE .MEDSUPPLY Qty: 1 0RF Rx Instructions: As directed Discharge Order = DC NOW: Discharge Order (Routine); Ordered 02/24/25 Ordered By: Michael Patel Discharge Diet: Regular Discharge Activity: Increase activity as tolerated Patient Instructions: Opioid Safety, Patient Portal & Alicia Instructions Activity Restrictions/Additional Instructions: Nothing per vagina for 6 weeks. Showers are preferred over baths for the first 6 weeks. Continue your vitamin for a minimum of 6 weeks and if still breast- feeding beyond that, until you are done breast-feeding. Discharge Attestations Time Spent in Discharge Care*: less than 30 min Quality Metrics Clinical Quality Measures [ No reported AMI, CVA or VTE this stay] Coding Level of Care Code Acute Code for Chg Fwd Diagnoses Spontaneous vaginal delivery O80
--- NOTE | 2025-02-24 13:26 | ANE.PACU2 ---
Inpatient post-anesthesia follow up: Airway intact: Yes Vital signs: Temperature 97.6 F Pulse Rate 79 Respiratory Rate 13 Blood Pressure 125/76 Pulse Oximetry 98 Oxygen Delivery Me thod Room Air Oxygen Flow Rate Fraction of Inspir ed Oxygen Hydration adequate: Yes Nausea and vomiting: No Mental status: Baseline Epidural Start/End: Epidural Start Date: 02/23/25 Epidural Start Time: 03:30 Epidural End Date: 02/23/25 Epidural End Time: 13:32
[2025-02-24 14:06] VITALS: BP 125/76; PULSE 79; RESP 13; TEMP 36.4; O2SAT 98
== END 2025-02-24 14:29 | disposition home or self-care (01) | DRG 806 ==
LOC: OPOB 07:18 → OBGYN 07:18
PROVIDERS: Admitting Provider Family Medicine; PCP Family Medicine; Visit Provider Family Medicine
DX: O23.43 Unspecified infection of urinary tract in pregnancy, third trimester (principal); N39.0 Urinary tract infection, site not specified; Z37.0 Single live birth; O77.0 Labor and delivery complicated by meconium in amniotic fluid; Z3A.39 39 weeks gestation of pregnancy; B95.1 Streptococcus, group B, as the cause of diseases classified elsewhere
CPT/HCPCS: 36415; 51702; 59025; 59409; 85025; 85027; 86850; 86900; 99211; J2405; J2540; J2590; J2795; J7030; J7121; J9999

== ENCOUNTER → 2025-05-21 10:17 | Outpatient (BNVA) | payer OTHER, SELFPAY | PROVIDERS: PCP Family Medicine; Referring Provider Nurse Practitioner; Visit Provider Nurse Practitioner | DX: Z11.3 Encounter for screening for infections with a predominantly sexual mode of transmission (principal) | CPT/HCPCS: 87491; 87591; 87661 ==